=== PATIENT | male | born 1925 | race Caucasian/White ===

== ENCOUNTER 2016-02-29 17:25 | Inpatient (IN) | payer OTHER ==
[~2016-02-29] VITALS: Ht 170.2 cm; Wt 78.0 kg
--- NOTE | ~2016-02-29 | H ---
[facility] [place] [address] HISTORY AND PHYSICAL Name: ALVARADO RAMON Room #: 404-P [facility] M.R.#: [id number] Admission: 02/29/16 Attend Phys: German Bartlett MD Discharge: 03/05/16 Date of : [birth year] Report #: [id number] THIS REPORT FOR: //name// CC: German Bartlett DATE OF SERVICE: 02/29/2016 CHIEF COMPLAINT: Cough and weakness. HISTORY OF PRESENT ILLNESS: The patient is an 89-year-old male who presents to our clinic for increasing cough and weakness. He has been sick for several days. He has had several falls since then. It is getting progressively worse. He is not able to keep much down. PAST MEDICAL HISTORY: Significant for COPD, hypertension, reflux, hyperlipidemia, prior prostate cancer, episode of pancreatitis. MEDICATIONS: Lisinopril 40 mg a day, omeprazole 20 mg 2 daily, tamsulosin 0.4 mg at bedtime, Zocor 20 mg a day, amlodipine 5 mg a day, omega-3 fish oil capsules daily, aspirin 81 mg a day, albuterol inhaler p.r.n., formoterol p.r.n., calcium daily, vitamin D daily. SOCIAL HISTORY: He is and lives with his . He is also ill today. FAMILY HISTORY: Noncontributory. REVIEW OF SYSTEMS: CONSTITUTIONAL: Positive for malaise and fatigue. HEENT: Congestion and drainage, no headaches. CHEST: He has cough and shortness of breath, no significant chest pain. GASTROINTESTINAL: No nausea, but decreased appetite. GENITOURINARY: No burning or frequency. EXTREMITIES: No new joint pains: PHYSICAL EXAMINATION: VITAL SIGNS: In my office, blood pressure was 162/78, pulse was 76, respiratory rate was 22, his O2 sat was 92% on room air. Temperature is 99.3. He does appear sickly. HEENT: His mucous membranes are dry. NECK: Supple, no adenopathy, thyromegaly or bruits. CHEST: Shows basilar crackles. CARDIOVASCULAR: Regular, without murmur. ABDOMEN: Soft, no masses. Bowel sounds are active. EXTREMITIES: Show no edema. We did a rapid flu test in the office, which was positive. Chest x-ray shows [address] [address] HISTORY AND PHYSICAL Name: ALVARADO RAMON Room #: 404-P [facility].#: [id number] Admission: 02/29/16 Attend Phys: German Bartlett MD Discharge: 03/05/16 Date of : [birth year] Report #: [id number] basilar infiltrate. ASSESSMENT: 1. Flu. 2. Weakness. 3. Acute kidney injury. PLAN: We will get lab, BNP, CBC. We will get IV fluids, Tamiflu, get a chest x-ray. We will also get breathing treatment started. We will resume his home meds as long as his blood pressure and renal function will tolerate. <ELECTRONICALLY SIGNED> By: German Bartlett MD 03/12/16 1250 [id number] 1628 German Bartlett MD /nt
[~2016-02-29 17:25] MED LIST changes: -CEFDINIR300 MG PO
[2016-02-29 20:00] VITALS: BP 191/86
[2016-03-01] VITALS: BP 174/84
[2016-03-01 04:00] VITALS: BP 153/68; BP 186/81
[2016-03-01 06:22] LABS: HEMATOCRIT 45.9 % (42.0-52.0); HEMOGLOBIN 15.4 gm/dL (14.0-18.0); MCH 31.5 pg (26.0-34.0); MCHC 33.5 % (28.0-37.0); MCV 94.1 fL (80.0-100.0); RBC 4.88 mil/uL (4.50-6.00); WBC 3.6 thou/uL (4.0-11.0)
[2016-03-01 06:27] LABS: CREATININE 1.5 mg/dL (0.6-1.3); POTASSIUM 3.4 mmol/L (3.5-5.1)
[2016-03-01 08:00] VITALS: BP 158/74
[2016-03-01 16:13] VITALS: BP 182/86
[2016-03-01 19:35] VITALS: BP 171/70
[2016-03-02 05:45] LABS: HEMATOCRIT 44.8 % (42.0-52.0); HEMOGLOBIN 14.7 gm/dL (14.0-18.0); MCH 31.3 pg (26.0-34.0); MCHC 32.8 % (28.0-37.0); MCV 95.2 fL (80.0-100.0); RBC 4.71 mil/uL (4.50-6.00); RDW 12.9 % (10.5-14.5); WBC 3.1 thou/uL (4.0-11.0)
[2016-03-02 06:04] LABS: CALCIUM 8.1 mg/dL (8.5-10.1); CREATININE 1.3 mg/dL (0.6-1.3); POTASSIUM 3.7 mmol/L (3.5-5.1)
[2016-03-02 08:00] VITALS: BP 161/76
[2016-03-02 16:00] VITALS: BP 171/78
[2016-03-02 20:00] VITALS: BP 155/90
[2016-03-03 05:00] VITALS: BP 172/70
[2016-03-03 06:13] LABS: HEMOGLOBIN 15.1 gm/dL (14.0-18.0); MCH 31.3 pg (26.0-34.0); MCHC 32.7 % (28.0-37.0); MCV 95.6 fL (80.0-100.0); PLATELET COUNT 92 thou/uL (150-400); RBC 4.81 mil/uL (4.50-6.00); RDW 12.9 % (10.5-14.5); WBC 3.7 thou/uL (4.0-11.0)
[2016-03-03 06:31] LABS: CALCIUM 8.3 mg/dL (8.5-10.1); CREATININE 1.3 mg/dL (0.6-1.3); POTASSIUM 3.1 mmol/L (3.5-5.1)
[2016-03-03 06:46] LABS: MANUAL DIFF YES
[2016-03-03 07:24] VITALS: BP 177/78
[2016-03-03 10:16] LABS: ABSOLUTE NEUTROPHILS 1.9 thou/uL (1.4-8.2); TOTAL CELL COUNT 100
[2016-03-03 15:26] VITALS: BP 186/66
[2016-03-03 19:25] VITALS: BP 197/78
[2016-03-04 03:41] VITALS: BP 165/69
[2016-03-04 08:00] VITALS: BP 120/98; BP 180/98
[2016-03-04 16:41] VITALS: BP 181/91
[2016-03-04 19:38] VITALS: BP 164/85
[2016-03-05 04:30] VITALS: BP 159/104
[2016-03-05 08:00] VITALS: BP 167/84
[2016-03-05] MEDS ORDERED: CEFDINIR300 MG PO (12:59)
[2016-03-05 13:53] VITALS: BP 167/84
[2016-03-05 14:13] VITALS: BP 167/84
[2016-03-05 14:43] VITALS: BP 167/84
== END 2016-03-05 14:42 | disposition home health service (06) | DRG 871 ==
LOC: 4N 17:25
PROVIDERS: Family Medicine; Internal Medicine
DX: A41.9 Sepsis, unspecified organism (principal); J11.00 Influenza due to unidentified influenza virus with unspecified type of pneumonia; N17.9 Acute kidney failure, unspecified; Z66 Do not resuscitate; R53.81 Other malaise; I10 Essential (primary) hypertension; J44.9 Chronic obstructive pulmonary disease, unspecified; E78.5 Hyperlipidemia, unspecified; K21.9 Gastro-esophageal reflux disease without esophagitis; Z85.46 Personal history of malignant neoplasm of prostate
CPT/HCPCS: 10790

== ENCOUNTER → 2016-02-29 | Outpatient (CLI) | payer OTHER ==
[~2016-02-29] MED LIST: AMLODIPINE BESY10 MG PO; ASPIRIN EC81 M1 PO; AUGMENTIN 875875 MG PO; B12INJ IM; CALCIUM 600 +1 EAC1 PO; CALCIUM CARBON500 M3 PO; CEFDINIR300 MG PO; EX-LAX5 MG PO; FORADIL12 MCG INH; HYDROCHLOROTHIA25 M1 PO; HYDROCODONE-AP1 EAC6 PO; LISINOPRIL40 MG PO; MEDROL DOSPAK21 TA1 PO; NEURONTIN 300300 M1 PO; NORCO 5-325 TA1 EACH PO; NORVASC 5 MG TAB5 MG PO; OMEGA-3 FISH O1 EAC5 PO; OMEPRAZOLE 20 M20 MG PO; OMEPRAZOLE20 M2 PO; PERCOCET 5-3251 EACH; POTASSIUM20 PO; PREDNISONE 10 M10 MG PO; PRESERVISION A1 EAC1 PO; REQUIP 1 MG TABL1 M1 PO; SEROQUEL 25 MG25 M1 PO; SIMVASTATIN40 MG PO; TAMSULOSIN HCL0.4 M1 PO; VALTREX1000 MG PO; VITAMIN D-32000 UNIT PO; ZOCOR 20 MG TAB20 M1 PO
== END ==
LOC: RAD 16:48
DX: R06.02 Shortness of breath (principal); J98.11 Atelectasis; R91.8 Other nonspecific abnormal finding of lung field; J90 Pleural effusion, not elsewhere classified; R05 Cough